=== PATIENT | female | born 2005 | race Caucasian/White ===

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

== ENCOUNTER 2024-06-02 17:09 | Emergency (ER) | payer BC, MEDICAID, SELFPAY ==
[2024-06-02 17:14] VITALS: BP 105/74; PULSE 84; RESP 18; TEMP 36.4; O2SAT 100; BMI 19.0
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
[2024-06-02 17:35] LABS: Basophils % 0.8 %; Eosinophils # 0.1 10^3/uL (0.0-0.8); Hematocrit 36.6 % (36-47); Lymphocytes # 1.3 10^3/uL (1.5-6.5); Lymphocytes % 25.8 %; Mean Corpuscular HGB Conc 33.1 g/dL (30-55); Mean Corpuscular Hemoglobin 27.9 pg (27-33); Mean Corpuscular Volume 84.5 fl (85-98); Mean Platelet Volume 10.4 fL (7.4-10.4); Monocytes # 0.4 10^3/uL (0.2-0.9); Nucleated Red Blood Cells % 0 %; Platelet Count 167 10^3/cmm (157-399); Red Blood Count 4.33 10^6/uL (3.85-5.65); Red Cell Distribution Width 12.7 % (12.1-15.1); White Blood Count 4.85 10^3/uL (4.5-13.0)
[2024-06-02 17:54] LABS: HCG, Serum Qual Negative (Negative)
[2024-06-02 17:56] LABS: Alanine Aminotransferase 13 U/L (0-33); Albumin Level 4.6 g/dL (3.5-5.2); Alkaline Phosphatase 75 U/L (35-105); Anion Gap 15.9 (5-19); Aspartate Amino Transferase 20 U/L (0-32); Blood Urea Nitrogen 16 mg/dL (6-20); Calcium 9.3 mg/dL (8.5-10.5); Carbon Dioxide 21 mmol/L (22-29); Chloride 107 mmol/L (98-107); Creatinine Clr Calc Pharmacy 124.5211; Globulin 2.9 g/dL (1.3-4.6); Glomerular Filtration Rate 107.8 mL/min (90-130); Glucose 97 mg/dL (65-115); Osmolality Calculated 291 mOsm/kg (285-295); Potassium 3.9 mmol/L (3.5-5.1); Sodium 140 mmol/L (136-145); Total Bilirubin 0.4 mg/dL (0.15-1.2); Total Protein 7.5 g/dL (6.6-8.7)
[2024-06-02] MEDS: iohexol 350 mg/mL 500 mL Btl (per mL) IV (18:13)
[2024-06-02] MEDS: ibuprofen 600 mg Tablet PO (18:59)
--- NOTE | 2024-06-03 13:23 | DCPLANNER ---
messaged ortho for er f/u
== END 2024-06-02 19:26 | disposition home or self-care (01) ==
PROVIDERS: Emergency Provider Nurse Practitioner Family
DX: S62.162A Displaced fracture of pisiform, left wrist, initial encounter for closed fracture (principal); S40.211A Abrasion of right shoulder, initial encounter; S80.812A Abrasion, left lower leg, initial encounter; S90.812A Abrasion, left foot, initial encounter; V86.59XA Driver of other special all-terrain or other off-road motor vehicle injured in nontraffic accident, initial encounter
CPT/HCPCS: 36415; 70450; 71260; 72125; 73030; 73110; 73552; 73630; 74177; 80053; 84703; 85025; 99285; Q9967

== ENCOUNTER → 2024-06-03 15:34 | Outpatient (BNVA) | payer BC, MEDICAID, SELFPAY | PROVIDERS: Visit Provider Nurse Practitioner | DX: S52.122A Displaced fracture of head of left radius, initial encounter for closed fracture (principal); X58.XXXA Exposure to other specified factors, initial encounter | CPT/HCPCS: 73080 ==

== ENCOUNTER 2024-06-10 13:04 | Outpatient (CLI) | payer BC, MEDICAID, SELFPAY ==
--- NOTE | 2024-06-10 13:00 | CT_ITS ---
WS: [id number] CT LEFT WRIST, NONCONTRAST, 3D HISTORY: left wrist fracture Technique: All CT scans at [facility] use at least one of these dose optimization techniques: automated exposure control; mA and/or kV adjustment per patient size (includes targeted exams where dose is matched to clinical indication); or iterative reconstruction. DLP: 79.78 mGy.cm COMPARISON: 06/02/2024 Acute fracture involving the fusiform with mild displacement. Approximately 3 mm of displacement of t he avulsion fracture from the parent bone. Hook of the hamate is intact. The remaining bones of the w rist are normal. Carpal rows are normally aligned. Proximal metacarpals are normal. No scaphoid fract ure. Normal distal radial ulnar joint. There is a small amount of soft tissue edema along the volar surfac e of the wrist at the site of fracture. CT/CT wrist LT wo con* [id number] IMPRESSION: 1. Mildly displaced pisiform fracture. Fracture fragment is displaced 3 mm fro m the parent bone. 2. Mild edema. No additional fractures.
== END 2024-06-10 13:05 | disposition home or self-care (01) ==
LOC: RAD 13:06
PROVIDERS: Visit Provider Nurse Practitioner
DX: S62.162A Displaced fracture of pisiform, left wrist, initial encounter for closed fracture (principal)
CPT/HCPCS: 73200

== ENCOUNTER 2024-06-15 16:52 | Outpatient (CLI) | payer BC, MEDICAID, SELFPAY | END 2024-06-15 16:53 | disposition home or self-care (01) | LOC: SPT 16:52 | PROVIDERS: Visit Provider Nurse Practitioner | DX: Z46.89 Encounter for fitting and adjustment of other specified devices (principal); S62.102D Fracture of unspecified carpal bone, left wrist, subsequent encounter for fracture with routine healing; X58.XXXD Exposure to other specified factors, subsequent encounter | CPT/HCPCS: 97161; L3984 ==

== ENCOUNTER → 2024-07-08 08:36 | Outpatient (BNVA) | payer BC, MEDICAID, SELFPAY | PROVIDERS: Visit Provider Nurse Practitioner | DX: S62.16 Fracture of pisiform; S52.125D Nondisplaced fracture of head of left radius, subsequent encounter for closed fracture with routine healing; V86.99XD Unspecified occupant of other special all-terrain or other off-road motor vehicle injured in nontraffic accident, subsequent encounter | CPT/HCPCS: 73080; 73110 ==

== ENCOUNTER → 2024-08-04 11:03 | Outpatient (BNVA) | payer BC, MEDICAID, SELFPAY | PROVIDERS: Visit Provider Nurse Practitioner | DX: S52.132D Displaced fracture of neck of left radius, subsequent encounter for closed fracture with routine healing (principal); S62.16 Fracture of pisiform; X58.XXXD Exposure to other specified factors, subsequent encounter | CPT/HCPCS: 73080; 73110 ==

== ENCOUNTER → 2024-08-12 12:17 | Outpatient (BNVA) | payer BC, MEDICAID, SELFPAY | PROVIDERS: Visit Provider Nurse Practitioner | DX: S62.001A Unspecified fracture of navicular [scaphoid] bone of right wrist, initial encounter for closed fracture (principal); X58.XXXA Exposure to other specified factors, initial encounter | CPT/HCPCS: 73110 ==

== ENCOUNTER 2024-08-12 14:57 | Outpatient (CLI) | payer BC, MEDICAID, SELFPAY | END 2024-08-12 14:58 | disposition home or self-care (01) | LOC: SPT 14:58 | PROVIDERS: Visit Provider Nurse Practitioner | DX: Z46.89 Encounter for fitting and adjustment of other specified devices (principal); S62.101D Fracture of unspecified carpal bone, right wrist, subsequent encounter for fracture with routine healing; X58.XXXD Exposure to other specified factors, subsequent encounter | CPT/HCPCS: L3809 ==

== ENCOUNTER 2024-10-15 08:55 | Outpatient (CLI) | payer BC, MEDICAID, SELFPAY ==
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
== END 2024-10-15 08:56 | disposition home or self-care (01) ==
LOC: RAD 08:56
PROVIDERS: Visit Provider Nurse Practitioner
DX: S62.021D Displaced fracture of middle third of navicular [scaphoid] bone of right wrist, subsequent encounter for fracture with routine healing (principal); M24.131 Other articular cartilage disorders, right wrist; V86.55XA Driver of 3- or 4- wheeled all-terrain vehicle (ATV) injured in nontraffic accident, initial encounter
CPT/HCPCS: 73221